=== PATIENT | female | born 1985 | race Hispanic/Latino ===

== ENCOUNTER 2017-06-22 06:02 | Observation (INO) | payer OTHER ==
[2017-06-16 10:17] VITALS: BMI 20.7
[2017-06-22 06:37] LABS: HEMOGLOBIN 12.9 g/dL (12.0-16.0); MEAN CELL VOLUME 93.2 fl (81.0-99.0); MEAN CORPUSCULAR HEMOGLOBIN 31.1 pg (27.0-31.0); MEAN CORPUSCULAR HGB CONC 33.4 g/dL (33.0-37.0); RBC 4.16 Mil/uL (3.80-5.20); RED CELL DISTRIBUTION WIDTH 14.2 % (11.5-14.5); WHITE BLOOD COUNT 6.9 K/uL (4.8-10.8)
[2017-06-22] MEDS ORDERED: Vasopressin 20 Units/ml Inj ONE (07:23)
[2017-06-22] MEDS ORDERED: Bupivacaine 0.5% Inj(30mL) ONE (07:23)
[2017-06-22] MEDS ORDERED: ePHEDrine 50 mg/ml Inj ONE (07:27)
[2017-06-22] MEDS ORDERED: Midazolam 2 MG/2 ML VIAL ONE (07:27)
[2017-06-22] MEDS ORDERED: Propofol 10 mg/ml Inj (20 ML) ONE (07:27)
[2017-06-22] MEDS ORDERED: Succinylcholine 200 mg/10 ml Inj IV ONE (07:27)
[2017-06-22] MEDS ORDERED: Rocuronium 10 mg/ml (5 ml) ONE (07:27)
[2017-06-22] MEDS ORDERED: Lidocaine 4% (Laryng-O-Jet) Kit MM ONE (07:28)
[2017-06-22] MEDS ORDERED: Lactated Ringer's 1,000 ML IV ONE ×2 (07:40→07:50)
[2017-06-22] MEDS ORDERED: Dexamethasone 4 mg/1 ml ONE (08:15)
[2017-06-22] MEDS ORDERED: Desflurane Inhalation Anesthetic Liq (240 ml) ONE (08:49)
[2017-06-22] MEDS ORDERED: Naloxone 0.4 mg/ml Inj (Adult) IVP PRN (12:18)
[2017-06-22] MEDS ORDERED: HYDROmorphone 0.5 mg/0.5 ml ISec ONE (12:20)
[2017-06-22] MEDS: HYDROmorphone 0.5 mg/0.5 ml ISec IVP PRN ×2 (12:20→12:56)
[2017-06-22] MEDS ORDERED: Lactated Ringer's 1,000 ML IV SCH (12:30)
[2017-06-22] MEDS ORDERED: Oxycodone/Acetaminophen 5/325 mg Tab PO PRN (13:01)
[2017-06-22] MEDS: cefOXitin IV 1 gm in Dextrose 1 GM/50 ML BAG IVPB SCH (16:07)
--- NOTE | 2017-06-22 21:01 | OP ---
PROCEDURE DATE: 06/22/2017 PREOPERATIVE DIAGNOSES: Symptomatic fibroid uterus, pelvic pain and pressure. POSTOPERATIVE DIAGNOSES: Symptomatic fibroid uterus, pelvic pain and pressure. OPERATIONS PERFORMED: Robotic-assisted hysterectomy. SURGEON: Matty Bolanos MD ORTHOPHOTOGRAPHY TECHNICIAN: MD Dr. Frieda Tinsley was the ophthalmic surgical assistant of the procedure. She was helpful in obtaining hemostasis, extraction of the specimen, and closure of the patient. The procedure would not have been possible without her assistance. TYPE OF ANESTHESIA: General. ANESTHESIA ADMINISTERED BY: Amy Connell MD ESTIMATED BLOOD LOSS: 100 mL. URINE OUTPUT: Avila catheter put out approximately 500 mL of clear urine. IV FLUID INTAKE: The patient received approximately 1600 mL of D5 LR intraoperatively. DESCRIPTION OF PROCEDURE: After informed consent was obtained, the patient was taken to the operating room where she was given general anesthesia. She was then placed in a modified dorsal lithotomy position with Dolphin stirrups. She was then prepped and draped in the normal sterile fashion. Attention was then turned to the vagina where a speculum was inserted into the vagina. The cervix was visualized grasped with single tooth tenaculum. The cervix then gently dilated. A HUMI uterine manipulator was inserted into the uterine cavity and used to manipulate the uterus. Attention was then turned to the urethra where a Avila catheter was inserted to monitor the patient's urinary output. Attention was then turned to approximately 6 cm superior to the umbilicus. Marcaine was infused. An 8 mm incision was made. The abdomen was then tented upward, a Veress needle was inserted. Placement was confirmed with the fluid filled syringe. The abdomen was then insufflated to 15 mm/Hg and the Veress needle was removed and an 8 mm robotic port was introduced under direct visualization introduced into the abdominal cavity. The laparoscope was then used to confirm the placement, attention was then turned to approximately 4 cm superior to the right anterior iliac crest Marcaine was infused 8 mm incision was made and a robotic port was introduced. Similar procedure was performed on the left. Attention was then turned o 10cm right and lateral to the umbilicus and a robotic port was placed under direct visualization. We then directed our attention to 10 cm left and lateral to the Marcaine was infused and a 5 mm assist port was placed. The abdomen was then surveyed with the findings noted above, a large prominent 8 cm fundal myoma was identified. A smaller 5 cm anterior myoma was identified. A smaller 4 cm right anterolateral fibroid was identified and a posterior 3 cm fibroid was noted. Attention was then turned to the fundal myoma, it was injected with Pitressin, a horizontal incision was made. The fibroid was identified and enucleated using a series of both sharp and blunt dissection. The fibroid was then placed in the cul-de-sac. The uterine defect was repaired with 2-0 Vicryl on a barbed suture in a running locked fashion. The second layer of the same suture was used to obtain excellent hemostasis. Attention was then turned to the anterior myoma where Pitressin was infused. A horizontal incision was made with scissors and this fibroid was enucleated using both sharp and blunt dissection. The uterine defect was repaired with 2-0 barbed suture in a running fashion. A second layer of the same suture was used to obtain excellent hemostasis. Attention was then turned to the third myoma, which in a similar fashion a horizontal incision was made, it was grasped with the tenaculum and the fibroid was enucleated using both sharp and blunt dissection. The uterine defect was repaired with 2-0 Vicryl in a running fashion. Attention was then turned to the posterior myoma that was scored with the scissor and grasped with the tenaculum and enucleated without difficulty. The defect was repaired with 2-0 Vicryl in a running fashion. Due to the large size of the fibroids, a suprapubic incision was made with the scalpel approximately 3 cm in length, it was carried down to the layer of fascia. The fascia was nicked in the midline. The fascial incision was then extended laterally. The peritoneum was identified and entered sharply with the Metzenbaum scissors. The fibroids were then extracted using the ExCITE technique and sent to pathology for evaluation. The incision was then repaired. The peritoneum was closed with 2-0 Vicryl in a running fashion. The muscle was reapproximated with 0-Vicryl in an interrupted fashion. The fascia was closed with 0-Vicryl in a running fashion. The skin was closed with 4-0 on a Shelton needle. The abdomen was then copiously irrigated. The irrigant was removed with a suction device. Hemostasis was noted. A Interceed was placed along with uterus, . The instruments were then removed from the abdomen. The ports were closed with 2-0 Biosyn and Dermabond. All sponge, lap, needle, and instrument counts were correct x2, and the patient was taken to the recovery room in awake and stable condition. Matty Bolanos MD [place]
[2017-06-23] MEDS: cefOXitin IV 1 gm in Dextrose 1 GM/50 ML BAG IVPB SCH ×2 (00:34→08:05)
[2017-06-23 06:47] LABS: HEMOGLOBIN 10.6 g/dL (12.0-16.0); MEAN CELL VOLUME 92.5 fl (81.0-99.0); MEAN CORPUSCULAR HEMOGLOBIN 31.1 pg (27.0-31.0); MEAN CORPUSCULAR HGB CONC 33.6 g/dL (33.0-37.0); RBC 3.41 Mil/uL (3.80-5.20); RED CELL DISTRIBUTION WIDTH 13.9 % (11.5-14.5); WHITE BLOOD COUNT 10.4 K/uL (4.8-10.8)
[2017-06-23 09:24] VITALS: RESP 20
[2017-06-23 13:28] VITALS: BP 115/73; PULSE 89; TEMP 97.9; O2SAT 99
== END 2017-06-23 14:00 | disposition home or self-care (01) ==
LOC: H.OPSURG 06:02 → H.PEDS 13:01 → H.OPSURG 14:36
PROVIDERS: ADMIT Obstetrics & Gynecology Gynecology; ATTEND Obstetrics & Gynecology Gynecology
DX: D25.9 Leiomyoma of uterus, unspecified (principal)
CPT/HCPCS: 36415; 58545; 85027; 86850; 86900; 88305; G0378; J0330; J0690; J0694; J1100; J1170; J2001; J2250; J2405; J2704; J3010; J7120